=== PATIENT | female | born 1945 | race Caucasian/White ===

== ENCOUNTER 2017-02-03 11:12 | Emergency (ER) | payer MEDICARE, BC ==
[~2017-02-03] VITALS: Ht 167.6 cm; Wt 68.2 kg
[~2017-02-03 11:12] MED LIST: ASPIRIN E.C. 8181 MG PO; DYAZIDE 25 MG-31 CAP PO; LIPITOR20 MG PO; NITROSTAT0.4 MG/TAB SL; PEPCID 20MG TAB20 MG PO; PLAVIX 75MG TAB75 MG PO; TENORMIN 2525 MG/TAB PO
[2017-02-03 11:13] VITALS: TEMP 98
[2017-02-03 12:06] LABS: BASO % 0.7 % (0.0-2.0); EOS % 0.7 % (0-4.0); GRAN # 3.1 (1.4-6.5); GRAN % 68.2 % (42.2-75.2); HEMATOCRIT 39.9 % (37.0-47.0); HEMOGLOBIN 13.1 g/dl (12.5-16.0); LYMPH % 22.4 % (20.0-51.0); MEAN CELL VOLUME 89 fl (80.0-100.0); MEAN CORPUSCULAR HEMOGLOBIN 29 pg (27.0-31.0); MEAN CORPUSCULAR HGB CONC 33 g/dl (33.0-37.0); MEAN PLATELET VOLUME 8.8 fl (7.4-10.4); MONO # 0.4 (0.1-0.6); MONO % 7.8 % (1.7-9.3); PLATELET COUNT 193 K/mm3 (130-400); RED BLOOD COUNT 4.51 M/mm3 (4.10-5.30); REDCELL DISTRIBUTION WIDTH-CV 13.6 % (11.5-14.5); WHITE BLOOD COUNT 4.6 K/mm3 (4.8-10.8)
[2017-02-03 12:24] LABS: PH 7 (5-8); SQUAMOUS EPITHELIAL 0-2 /hpf; URINE APPEARANCE Hazy; URINE BACTERIA None Seen /hpf; URINE BILIRUBIN Negative (NEGATIVE); URINE BLOOD 2+ (NEGATIVE); URINE COLOR Yellow; URINE GLUCOSE Negative (NEGATIVE); URINE KETONE Negative (NEGATIVE); URINE UROBILINOGEN Negative (NEGATIVE)
[2017-02-03 12:27] LABS: ADJUSTED CALCIUM 9.3 mg/dL (8.4-10.2); ALANINE AMINOTRANSFERASE 68 U/L (9-52); ALBUMIN 4.1 gm/dL (3.5-5.0); ALKALINE PHOSPHATASE 85 U/L (50-136); ANION GAP 12 mmol/L (7-16); BILIRUBIN,TOTAL 1.2 mg/dL (0.0-1.0); BLOOD UREA NITROGEN 15 mg/dL (7-17); C-REACTIVE PROTEIN 1.1 mg/dL (0.0-0.9); CALCIUM 9.4 mg/dL (8.4-10.2); CARBON DIOXIDE 24 mmol/L (22-30); CHLORIDE 102 mmol/L (98-107); CREATININE, serum 0.87 mg/dL (0.52-1.25); GLUCOSE 96 mg/dL (74-106); SODIUM 138 mmol/L (137-145); TOTAL PROTEIN 6.9 gm/dL (6.4-8.2)
[2017-02-03 12:38] LABS: TROPONIN-I < 0.012 ng/mL (0.000-0.034)
[2017-02-03] MEDS ORDERED: COREG 3.123.125 MG/T PO (13:16)
[2017-02-03 14:48] LABS: LIPASE 43 U/L (23-300)
[2017-02-03] MEDS ORDERED: FLEXERIL 1010 MG/TAB PO (15:00)
[2017-02-03] MEDS ORDERED: NORCO 325 MG-51 TAB PO (15:00)
[2017-02-03 15:27] VITALS: BP 118/80; PULSE 54
== END 2017-02-03 15:15 | disposition home or self-care (01) ==
LOC: COL.ER 11:12
PROVIDERS: Emergency Medicine
DX: M79.1 Myalgia (principal); R53.83 Other fatigue; R51 Headache; I25.10 Atherosclerotic heart disease of native coronary artery without angina pectoris
CPT/HCPCS: J7040

== ENCOUNTER → 2018-02-08 | Outpatient (CLI) | payer MEDICARE, BC ==
[~2018-02-08] MED LIST changes: +COREG 3.123.125 MG/T PO; +FLEXERIL 1010 MG/TAB PO; +NORCO 325 MG-51 TAB PO
== END ==
LOC: ZLAB.ENT 15:58
DX: H60.93 Unspecified otitis externa, bilateral (principal)

== ENCOUNTER → 2022-11-21 | Outpatient (CLI) | payer MEDICARE, BC | LOC: COL.CARD 08:24 | DX: G60.9 Hereditary and idiopathic neuropathy, unspecified (principal); R53.1 Weakness; M54.50 Low back pain, unspecified; G89.29 Other chronic pain ==